=== PATIENT | male | born 2000 | race Caucasian/White ===

== ENCOUNTER 2023-05-10 18:39 | Emergency (ER) | payer SELFPAY ==
[~2023-05-10] VITALS: Ht 170.2 cm; Wt 75.0 kg
[2023-05-10 18:39] VITALS: BP 152/81; PULSE 68; RESP 16; TEMP 98.6
== END 2023-05-10 19:49 | disposition still patient (30) ==
LOC: EMS 18:39
DX: Z53.21 Procedure and treatment not carried out due to patient leaving prior to being seen by health care provider (principal)
CPT/HCPCS: 99281; Z7502